=== PATIENT | male | born 1975 | race Caucasian/White ===

== ENCOUNTER 2022-05-18 18:36 | Emergency (ER) | payer SELFPAY ==
[2022-05-18] MEDS: cefTRIAXone 1 GM Vial IM ONE (20:07)
== END 2022-05-18 20:27 | disposition home or self-care (01) ==
LOC: FB.ED 18:36
DX: L03.116 Cellulitis of left lower limb (principal); S80.212A Abrasion, left knee, initial encounter; F17.210 Nicotine dependence, cigarettes, uncomplicated
CPT/HCPCS: 87070; 87205; 96372; 99283; J0696